=== PATIENT | male | born 1955 | race Caucasian/White ===

== ENCOUNTER 2023-02-16 11:20 | Inpatient (IN) | payer OTHER ==
[2023-02-16 12:17] VITALS: BMI 27.2
[2023-02-16] MEDS ORDERED: NALOXONE HCL (KLOXXADO) 8 MG SPRAY NS PRN (12:38)
[2023-02-16] MEDS ORDERED: LOPERAMIDE HCL 2 MG CAPSULE PO PRN (12:38)
[2023-02-16] MEDS ORDERED: MAG HYDROX/AL HYDROX/SIMETH 30 ML UNIT-DOSE CUP PO PRN (12:38)
[2023-02-16] MEDS ORDERED: BENZONATATE 200 MG CAPSULE PO PRN (12:38)
[2023-02-16] MEDS ORDERED: MAGNESIUM HYDROX 2400MG/30ML ORAL SUSPENSION 30 ML CUP PO PRN (12:38)
[2023-02-16] MEDS ORDERED: DICYCLOMINE HCL 10 MG CAPSULE PO PRN (12:38)
[2023-02-16] MEDS ORDERED: BENZOCAINE/MENTHOL (CHLORASEPTIC ) LOZENGE MM PRN (12:38)
[2023-02-16] MEDS ORDERED: LORazepam 1 MG TABLET PO PRN (12:38)
[2023-02-16] MEDS ORDERED: NALOXONE HCL 0.4 MG/ML VIAL IM PRN (12:38)
[2023-02-16] MEDS ORDERED: IBUPROFEN 400 MG TABLET (FP) PO PRN (12:38)
[2023-02-16] MEDS ORDERED: BISMUTH SUBSALICYLATE 262 MG/15 ML BTL PO PRN (12:38)
[2023-02-16] MEDS ORDERED: guaiFENesin 600 MG TABLET.ER (FP) PO PRN (12:38)
[2023-02-16] MEDS ORDERED: hydrOXYzine PAMOATE 25 MG CAPSULE (FP) PO PRN (12:38)
[2023-02-16] MEDS ORDERED: POLYETHYLENE GLYCOL (HEALTHYLAX) 3350 17 GM PACKET PO PRN (12:38)
[2023-02-16] MEDS ORDERED: IBUPROFEN 600 MG TABLET (FP) PO PRN (12:38)
[2023-02-16] MEDS ORDERED: METHOCARBAMOL 500 MG TABLET PO PRN (12:38)
[2023-02-16] MEDS ORDERED: ONDANSETRON *ODT* 4 MG TABLET SL PRN (12:38)
[2023-02-16] MEDS ORDERED: PRENATAL VITAMINS W/ FOLIC ACID TABLET (FP) PO ONE (15:01)
[2023-02-16] MEDS: PRENATAL VITAMINS W/ FOLIC ACID TABLET (FP) PO SCH (15:05)
[2023-02-16] MEDS: LORazepam 2 MG TABLET PO SCH ×2 (17:33→22:59)
[2023-02-16 18:06] LABS: HEMATOCRIT 25.1 % (35.4-49); HEMOGLOBIN 8.5 GM/dL (11.7-16.9); MCH 33.6 pg (25.7-33.7); MCHC 33.8 g/dl (32.0-35.9); MEAN CELL VOLUME 99.3 fl (80-96); MEAN PLT VOLUME 7.3 fl (7.5-11.1); PLATELET COUNT 285 10^3/uL (134-434); RBC 2.53 M/mm3 (4.00-5.60); RDW 16.4 % (11.9-15.9); WHITE BLOOD COUNT 4.2 K/mm3 (4.0-10.0)
[2023-02-16 18:07] LABS: CALCIUM 8.3 mg/dL (8.5-10.1)
[2023-02-16 18:08] LABS: ALBUMIN 2.2 g/dl (3.4-5.0)
[2023-02-16] MEDS: ACETAMINOPHEN 325 MG TABLET (FP) PO PRN (18:08)
[2023-02-16 18:12] LABS: BILIRUBIN,TOTAL 0.4 mg/dL (0.2-1); TOT PROT 5.6 g/dl (6.4-8.2)
[2023-02-16] MEDS: THIAMINE HCL 100 MG TABLET (FP) PO SCH (22:59)
[2023-02-16] MEDS: MELATONIN 5 MG TABLETS PO SCH (22:59)
[2023-02-16] MEDS: traZODone HCL 50 MG TABLET (FP) PO SCH (23:01)
[2023-02-17] MEDS: LORazepam 2 MG TABLET PO SCH ×4 (05:58→22:38)
[2023-02-17] MEDS: ESCITALOPRAM OXALATE 10 MG TABLET PO SCH (10:48)
[2023-02-17] MEDS: PRENATAL VITAMINS W/ FOLIC ACID TABLET (FP) PO SCH (10:48)
[2023-02-17] MEDS ORDERED: LACTULOSE 20 GM/30 ML UDC (FOR ORAL USE ONLY) PO PRN (10:53)
[2023-02-17] MEDS: ACETAMINOPHEN 325 MG TABLET (FP) PO PRN (19:41)
[2023-02-17] MEDS: MELATONIN 5 MG TABLETS PO SCH (21:54)
[2023-02-17] MEDS: traZODone HCL 50 MG TABLET (FP) PO SCH (21:54)
[2023-02-17] MEDS: THIAMINE HCL 100 MG TABLET (FP) PO SCH (21:54)
[2023-02-18] MEDS: LORazepam 1 MG TABLET PO SCH ×4 (05:51→22:46)
[2023-02-18] MEDS: PRENATAL VITAMINS W/ FOLIC ACID TABLET (FP) PO SCH (10:54)
[2023-02-18] MEDS: BICTEGRAV/EMTRICIT/TENOFOV (BIKTARVY) 50-200-25 MG TABLET PO SCH (10:55)
[2023-02-18] MEDS: ESCITALOPRAM OXALATE 10 MG TABLET PO SCH (10:55)
[2023-02-18] MEDS: PANTOPRAZOLE 40 MG TABLET PO SCH (10:56)
[2023-02-18] MEDS ORDERED: ATORVASTATIN CA 40 MG TABLET (FP) PO SCH (22:00)
[2023-02-18] MEDS: traZODone HCL 50 MG TABLET (FP) PO SCH (22:45)
[2023-02-18] MEDS: THIAMINE HCL 100 MG TABLET (FP) PO SCH (22:45)
[2023-02-18] MEDS: MELATONIN 5 MG TABLETS PO SCH (22:47)
[2023-02-18] MEDS: ACETAMINOPHEN 325 MG TABLET (FP) PO PRN (22:52)
[2023-02-19] MEDS ORDERED: LORazepam 0.5 MG TABLET PO PRN
[2023-02-19] MEDS: LORazepam 0.5 MG TABLET PO SCH ×2 (05:42→11:07)
[2023-02-19] MEDS ORDERED: TAMSULOSIN HCL 0.4 MG CAP PO SCH (08:30)
[2023-02-19] MEDS: BICTEGRAV/EMTRICIT/TENOFOV (BIKTARVY) 50-200-25 MG TABLET PO SCH (10:59)
[2023-02-19] MEDS: ESCITALOPRAM OXALATE 10 MG TABLET PO SCH (10:59)
[2023-02-19] MEDS: PANTOPRAZOLE 40 MG TABLET PO SCH (10:59)
[2023-02-19] MEDS: PRENATAL VITAMINS W/ FOLIC ACID TABLET (FP) PO SCH (10:59)
[2023-02-19 12:57] VITALS: BP 130/85; PULSE 76; RESP 18; TEMP 97.1
[2023-02-19] MEDS: ACETAMINOPHEN 325 MG TABLET (FP) PO PRN (13:46)
[2023-02-19 16:27] LABS: CALCIUM 8.7 mg/dL (8.5-10.1)
[2023-02-19 16:28] LABS: ALBUMIN 2.2 g/dl (3.4-5.0)
[2023-02-19 16:31] LABS: CREATININE 0.8 mg/dL (0.55-1.3)
[2023-02-19 16:32] LABS: BILIRUBIN,TOTAL 0.4 mg/dL (0.2-1); TOT PROT 5.6 g/dl (6.4-8.2)
[2023-02-19 16:36] LABS: HEMATOCRIT 25.7 % (35.4-49); HEMOGLOBIN 8.7 GM/dL (11.7-16.9); MCH 33.4 pg (25.7-33.7); MEAN CELL VOLUME 98.2 fl (80-96); MEAN PLT VOLUME 7.2 fl (7.5-11.1); PLATELET COUNT 326 10^3/uL (134-434); RBC 2.62 M/mm3 (4.00-5.60); RDW 17.2 % (11.9-15.9); WHITE BLOOD COUNT 4.6 K/mm3 (4.0-10.0)
[2023-02-20] MEDS ORDERED: LORazepam 0.5 MG TABLET PO ONE (05:00)
== END 2023-02-19 15:15 | disposition home or self-care (01) | DRG 897 ==
LOC: YASAS 11:20 → Y6N 13:32
PROVIDERS: ADMIT Allergy & Immunology; ATTEND Surgery
PROC: HZ2ZZZZ Detoxification Services for Substance Abuse Treatment (ICD-10-PCS; principal; 2023-02-16)
DX: F10.230 Alcohol dependence with withdrawal, uncomplicated (principal); B20 Human immunodeficiency virus [HIV] disease; E72.20 Disorder of urea cycle metabolism, unspecified; F32.A Depression, unspecified; F41.9 Anxiety disorder, unspecified; D64.9 Anemia, unspecified; E78.5 Hyperlipidemia, unspecified; K21.9 Gastro-esophageal reflux disease without esophagitis; M15.9 Polyosteoarthritis, unspecified; Z96.643 Presence of artificial hip joint, bilateral; Z87.891 Personal history of nicotine dependence; Z99.89 Dependence on other enabling machines and devices; Z79.899 Other long term (current) drug therapy
CPT/HCPCS: 36415; 80053; 82140; 82607; 82746; 83540; 83550; 85027; 85045; 86780; 87811; 93005; 93010; C9803-CS; U0003; U0005